=== PATIENT | male | born 1960 | race Caucasian/White ===

== ENCOUNTER 2016-12-04 09:23 | Emergency (ER) | payer BC ==
[2016-12-04 09:32] VITALS: BP 181/109
--- NOTE | 2016-12-04 13:06 | UC ---
Respiratory Complaint HPI - HPI Summary HPI Summary: The patient comes in today for: 1. Choking sensation, anxiety, dyspnea ("I have to breath really deep to get any air."): Onset: 2 months. Palliative/provocative: Nothing makes his symptoms better or worse. Quality: Choking sensation. Region: Neck Severity: 4/10 for choking and dypsnea. Time: Constant. Associated symptoms: Fevers: None. Previous disease: None. Wheezing: Today. Previous use of inhalers: He is on Previous disease: He was initially seen in early October by [facility]--dx: Sinus infection, Rx: Augmentin 875 bid. His symptoms were cough at that time, along with sinus pressure. Second visit (end october): Dx: same with Rx Albuterol. Third visit was last : Dx: "same thing." He was given a repeat of Augmentin. He was given the Advair HFA 230/21. He was given a "breathing treatment" which helped. * - History of Current Complaint Chief Complaint: UCRespiratory Stated Complaint: RESP COMPLAINT Time Seen by Provider: 12/04/16 12:28 Hx Obtained From: Patient - Allergies/Home Medications Allergies/Adverse Reactions: Allergies Allergy/AdvReac Type Severity Reaction Status Date / Time No Known Allergies Allergy Verified 12/04/16 09:32 Home Medications: Home Medications Amoxicillin/Clavulanate TAB* [Augmentin TAB 875*] 875 mg PO BID 12/04/16 [ History Confirmed 12/04/16] PMH/Surg Hx/FS Hx/Imm Hx Previously Healthy: Yes Endocrine History Of: Denies: Diabetes, Thyroid Disease, Hyperthyroidism, Hypothyroidism, Dyslipidemia Cardiovascular History Of: Denies: Cardiac Disorders, Hypertension, Pacemaker/ICD, Myocardial Infarction , Congestive Heart Failure, Atrial Fibrillation, Deep Vein Thrombosis, Bleeding Disorders Respiratory History Of: Denies: COPD, Asthma, Bronchitis, Pneumonia, Pulmonary Embolism GI/ History Of: Denies: Gastroesophageal Reflux, Ulcer, Gastrointestinal Bleed, Gall Bladder Disease, Kidney Stones, Diverticulitis, Renal Disease, Urosepsis Neurological History Of: Denies: TIA, CVA, Dementia, Seizures, Migraine Psychological History Of: Denies: Anxiety, Depression, Bipolar Disorder, Schizophrenia, Post Traumatic Stress Disorder Cancer History Of: Denies: Lung Cancer, Colorectal Cancer, Breast Cancer, Prostate Cancer, Cervical Cancer Other History Of: Negative For: HIV, Hepatitis B, Hepatitis C, Anticoagulant Therapy - Surgical History Surgical History: None Surgery Procedure, Year, and Place: appy - Family History Known Family History: Negative: Cardiac Disease, Hypertension - Social History Occupation: Employed Full-time Alcohol Use: None Substance Use Type: None Smoking Status (MU): Never Smoked Tobacco Review of Systems Constitutional: Negative Skin: Negative Eyes: Negative ENT: Negative Respiratory: Shortness Of Breath, Cough Cardiovascular: Negative Gastrointestinal: Negative Genitourinary: Negative All Other Systems Reviewed And Are Negative: Yes Physical Exam Triage Information Reviewed: Yes Appearance: Well-Appearing, No Pain Distress, Well-Nourished Vital Signs: Initial Vital Signs Temp 97.1 F 12/04/16 09:28 Pulse 75 12/04/16 09:28 Resp 28 12/04/16 09:28 BP 181/109 12/04/16 09:28 Pulse Ox 100 12/04/16 09:28 Repeat BP prior to leavin/90. Vital Signs Reviewed: Yes Eyes: Positive: Conjunctiva Clear. Negative: Discharge ENT: Positive: Hearing grossly normal. Negative: Pharyngeal erythema, Nasal congestion, Nasal drainage, TM bulging, TM dull, TM red, Tonsillar swelling, Tonsillar exudate Dental: Negative: Gross Decay/Caries @, Dental Fracture @ Neck: Positive: Supple, Nontender, No Lymphadenopathy. Negative: Nuchal Rigidity Respiratory: Positive: No respiratory distress, No accessory muscle use, Rhonchi - Few, Wheezing - few Cardiovascular: Positive: RRR, No Murmur Abdomen Description: Positive: Nontender, No Organomegaly, Soft. Negative: Distended, Guarding Musculoskeletal: Positive: Strength Intact, ROM Intact, No Edema Neurological: Positive: Alert, Muscle Tone Normal Psychological: Positive: Age Appropriate Behavior, Consolable Skin: Negative: rashes, breakdown UC Diagnostic Evaluation - Laboratory O2 Sat by Pulse Oximetry: 100 Diagnostic Studies Comment: IMPRESSION: NO ACTIVE CARDIOPULMONARY DISEASE IS NOTED. Respiratory Course/Dx - Differential Dx/Diagnosis Differential Diagnosis/HQI/PQRI: Asthma, Bronchitis, Laryngitis, Sinusitis Provider Diagnoses: Bronchospasm. Upper respiratory infection. Globus syndrome. Discharge - Discharge Plan Condition: Stable Disposition: HOME Patient Education Materials: Bronchospasm (ED) Additional Instructions: Please contact your primary care provider today for a follow-up evaluation early next week to see how well you are doing. If you continue to have problems with a choking sensation in your throat, please discuss with your primary care provider a possible ENT evaluation.
[2016-12-04] MEDS ORDERED: Albuterol/Ipratropium NEB.SOL* Albuterol 2.5 MG/Ipratropium 0.5 MG 3 ML INH ONE (13:11)
--- NOTE | 2016-12-04 14:02 | RAD ---
Indication: Cough, dyspnea. 2 views of the chest including dual energy PA views demonstrate no mediastinal shift. Tortuous descending aorta is noted. Lung reyes are clear. No prior study is available for comparison. IMPRESSION: NO ACTIVE CARDIOPULMONARY DISEASE IS NOTED.
== END 2016-12-04 14:36 | disposition home or self-care (01) ==
LOC: UCEAST 09:23
DX: J98.01 Acute bronchospasm (principal); J06.9 Acute upper respiratory infection, unspecified; F45.8 Other somatoform disorders; F41.9 Anxiety disorder, unspecified; J32.8 Other chronic sinusitis
CPT/HCPCS: 71020; 99202; A9270-GY; G0463

== ENCOUNTER 2016-12-08 09:58 | Emergency (ER) | payer BC ==
[2016-12-08] MEDS ORDERED: Aspirin Low Dose CHEW TAB* 81 MG PO ONE (13:29)
[2016-12-08] MEDS ORDERED: Aspirin EC TAB* 325 MG PO ONE (13:30)
--- NOTE | 2016-12-08 14:02 | ED ---
Progress - Progress Note Progress Note: 56 yo male fighting an upper respiratory illness for over a month on multiple antibiotics and a reported neg cxr by pt. Pt had a few episodes of feeling swelling in his throat and last night felt his heart was beating very strongly. no pain now. 1) ekg 2) trop 3) labs 4) asa Course/Dx - Diagnoses Provider Diagnoses: Chest pain
[2016-12-08 14:26] LABS: Hematocrit 46 % (42-52); Hemoglobin 15.7 g/dl (14.0-18.0); Mean Corpuscular HGB Conc 34 g/dl (31-36); Mean Corpuscular Hemoglobin 31 pg (27-31); Mean Corpuscular Volume 90 fL (80-94); Mean Platelet Volume 7 um3 (7.4-10.4); Red Blood Count 5.14 10^6/ul (4.0-5.4); Red Cell Distribution Width 15 % (10.5-15); White Blood Count 9.5 10^3/ul (3.5-10.8)
[2016-12-08 14:28] LABS: Add Diff/Slide Review? Slide Review Added; Comments Flag Yes
[2016-12-08 14:45] LABS: Albumin 4.6 g/dL (3.2-5.2); Calcium 9.4 mg/dL (8.6-10.3); EGFR African American 74.9 (>60); EGFR Non-African American 58.2 (>60); Globulin 3.2 g/dL (2-4); Magnesium 2.2 mg/dL (1.9-2.7); Potassium 3.9 mmol/L (3.5-5.0); Total Bilirubin 0.5 mg/dL (0.2-1.0); Total Protein 7.8 g/dL (6.4-8.9)
[2016-12-08 15:14] VITALS: BP 156/96
[2016-12-08] MEDS ORDERED: NS 0.9% 1000 ML* 1,000 ML IV ONE (17:26)
--- NOTE | 2016-12-08 17:31 | RAD ---
INDICATION: Chest pain COMPARISON: December 04, 2016 TECHNIQUE: An AP portable view obtained at 1720 hours is submitted. FINDINGS: Bones/Soft Tissues: There are no acute bony findings. Cardiomediastinal: The cardiomediastinal silhouette is normal. Lungs: There are no infiltrates. Pleura: There are no pleural effusions. Other: None IMPRESSION: NO ACTIVE DISEASE.
[2016-12-08] MEDS ORDERED: Iodixanol* (CONTRAST) 320 MG/ML 100 ML SDV IV ONE (17:34)
--- NOTE | 2016-12-08 18:09 | RAD ---
INDICATION: Voice change COMPARISON: Chest x-ray same date TECHNIQUE: Axial source images were acquired following the intravenous administration of 50 mL of Visipaque 320 Coronal and sagittal reconstructed images were acquired. FINDINGS: Brain and skull base: There are no CT abnormalities of the visualized brain or skull base. The mastoid air cells are well aerated. Salivary glands: The major salivary glands appear normal. Paranasal sinuses: The paranasal sinuses are clear. Nasopharynx: The nasopharynx and nasal cavity appear normal. Oropharynx: The oral, and oropharynx appear normal. Larynx: There are no laryngeal abnormalities. Thyroid: The thyroid appears normal. Lymph nodes: There is no lymphadenopathy by size criteria. Trachea/esophagus: There are no abnormalities of the trachea or visualized esophagus. The visualized lung apices are clear.. Vessels:The vessels appear normal. Bones and soft tissues:The remaining soft tissue elements of the neck are normal. There are no acute bony findings. Other: None IMPRESSION: NO MASS OR INFLAMMATORY CHANGE.
--- NOTE | 2016-12-08 19:21 | ED ---
Kali Monsalve Janilya, scribed for Sweta Louis MD on 12/08/16 at 1653 . HPI Chest Pain - HPI Summary HPI Summary: A 56 y/o male came in to [facility] presenting w/ a gradual onset of constant CP for about a few days. Pt states he had sinus infection over a month ago, for which, he was put on Augmentin for 10 days in October. 5-6 days ago, pt felt chest tightness, SOB like "throat closing up", constant palpitations, wheezes, changes in voice. Pt denies fever. On 12/04/2016, pt went to [facility] and was prescribed Prednisone. On 12/06/2016, pt visited a PCP and was given Levaquin and blood pressure medicine. No SHx smoking or drinking. No PMHx asthma. No FMHx IN, HTN, DM, DVT. FMHx stents - brother. - History of Current Complaint Chief Complaint: EDGeneral Time Seen by Provider: 12/08/16 16:36 Hx Obtained From: Patient Onset/Duration: Started Days Ago, Atraumatic, Still Present Timing: Constant, Lasting Days Initial Severity: Moderate Current Severity: Moderate Pain Intensity: 1 Chest Pain Location: Upper Sternal Chest Pain Radiates: No Character: Dyspnea at Rest, Fluttering, Pounding, Tightness Aggravating Factor(s): Nothing Alleviating Factor(s): Nothing Associated Signs and Symptoms: Positive: Chest Pain, Shortness of Breath, Palpitations. Negative: Fever - Risk Factors Pulmonary Embolism Risk Factors: Negative TAD Risk Factors: Negative - Allergy/Home Medications Allergies/Adverse Reactions: Allergies Allergy/AdvReac Type Severity Reaction Status Date / Time No Known Allergies Allergy Verified 12/04/16 09:32 PMH/Surg Hx/FS Hx/Imm Hx Endocrine/Hematology History: Denies: Hx Anticoagulant Therapy, Hx Diabetes, Hx Thyroid Disease Cardiovascular History: Denies: Hx Congestive Heart Failure, Hx Deep Vein Thrombosis, Hx Hypertension , Hx Myocardial Infarction, Hx Pacemaker/ICD Respiratory History: Denies: Hx Asthma, Hx Chronic Obstructive Pulmonary Disease (COPD), Hx Lung Cancer, Hx Pneumonia, Hx Pulmonary Embolism GI History: Denies: Hx Gall Bladder Disease, Hx Gastrointestinal Bleed, Hx Ulcer, Hx Urosepsis History: Denies: Hx Kidney Stones, Hx Renal Disease Neurological History: Denies: Hx Dementia, Hx Migraine, Hx Seizures, Hx Transient Ischemic Attacks (TIA) Psychiatric History: Denies: Hx Anxiety, Hx Depression, Hx Schizophrenia, Hx Bipolar Disorder - Surgical History Surgery Procedure, Year, and Place: appy Infectious Disease History: No Infectious Disease History: Denies: Traveled Outside the [place] in Last 30 Days - Family History Known Family History: Negative: Cardiac Disease, Hypertension, Diabetes - No IN, DVT, but stents - brother - Social History Occupation: Employed Full-time Lives: With Family Alcohol Use: None Substance Use Type: Reports: None Smoking Status (MU): Never Smoked Tobacco Review of Systems Negative: Fever ENT: Other - changes in voice Positive: Palpitations, Chest Pain - chest tightness Respiratory: Other - wheezes and changes in voice Positive: Shortness Of Breath All Other Systems Reviewed And Are Negative: Yes Physical Exam Triage Information Reviewed: Yes Vital Signs On Initial Exam: Initial Vitals Temp Pulse Resp BP Pulse Ox 97.6 F 82 18 158/96 99 12/08/16 10:17 12/08/16 10:17 12/08/16 10:17 12/08/16 10:17 12/08/16 10:17 Vital Signs Reviewed: Yes Appearance: Positive: Well-Appearing, No Pain Distress Skin: Positive: Warm, Skin Color Reflects Adequate Perfusion, Dry Eyes: Positive: EOMI, [place] ENT: Positive: Pharynx normal, TMs normal Neck: Positive: Supple, Nontender Respiratory/Lung Sounds: Positive: Clear to Auscultation, Breath Sounds Present. Negative: Rales, Rhonchi - no wheezes Cardiovascular: Positive: RRR. Negative: Murmur, Rub - no gallops Abdomen Description: Positive: Nontender, Soft. Negative: Distended, Guarding - no rebound Bowel Sounds: Positive: Present Musculoskeletal: Positive: Strength/ROM Intact. Negative: Edema Left, Edema Right Neurological: Positive: Normal, Sensory/Motor Intact, Alert, Oriented to Person Place, Time Psychiatric: Positive: Affect/Mood Appropriate Diagnostics - Vital Signs Vital Signs Temp Pulse Resp BP Pulse Ox 12/08/16 15:14 97.6 F 85 18 156/96 95 12/08/16 10:17 97.6 F 82 18 158/96 99 - Laboratory Lab Results: Lab Results 12/08/16 12/08/16 12/08/16 Range/Units 14:14 14:14 14:14 WBC 9.5 (3.5-10.8) 10^3/ul RBC 5.14 (4.0-5.4) 10^6/ul Hgb 15.7 (14.0-18.0) g/dl Hct 46 (42-52) % MCV 90 (80-94) fL MCH 31 (27-31) pg MCHC 34 (31-36) g/dl RDW 15 (10.5-15) % Plt Count 297 (150-450) 10^3/ul MPV 7 L (7.4-10.4) um3 Neut % (Auto) 56.4 (38-83) % Lymph % (Auto) 36.9 (25-47) % [place] % (Auto) 4.9 (1-9) % Eos % (Auto) 0.9 (0-6) % Baso % (Auto) 0.9 (0-2) % Absolute Neuts (auto) 5.4 (1.5-7.7) 10^3/ul Absolute Lymphs (auto) 3.5 (1.0-4.8) 10^3/ul Absolute Monos (auto) 0.5 (0-0.8) 10^3/ul Absolute Eos (auto) 0.1 (0-0.6) 10^3/ul Absolute Basos (auto) 0.1 (0-0.2) 10^3/ul Absolute Nucleated RBC 0 10^3/ul Nucleated RBC % 0 Sodium 137 (133-145) mmol/L Potassium 3.9 (3.5-5.0) mmol/L Chloride 100 L (101-111) mmol/L Carbon Dioxide 30 (22-32) mmol/L Anion Gap 7 (2-11) mmol/L BUN 19 (6-24) mg/dL Creatinine 1.27 H (0.67-1.17) mg/dL Est GFR ( Amer) 74.9 (>60) Est GFR (Non-Af Amer) 58.2 (>60) BUN/Creatinine Ratio 15.0 (8-20) Glucose 93 (70-100) mg/dL Lactic Acid 1.8 (0.5-2.0) mmol/L Calcium 9.4 (8.6-10.3) mg/dL Magnesium 2.2 (1.9-2.7) mg/dL Total Bilirubin 0.50 (0.2-1.0) mg/dL AST 29 (13-39) U/L ALT 45 (7-52) U/L Alkaline Phosphatase 46 (34-104) U/L Troponin I 0.00 (<0.04) ng/mL Total Protein 7.8 (6.4-8.9) g/dL Albumin 4.6 (3.2-5.2) g/dL Globulin 3.2 (2-4) g/dL Albumin/Globulin Ratio 1.4 (1-3) Result Diagrams: 12/08/16 14:14 12/08/16 14:14 Lab Statement: Any lab studies that have been ordered have been reviewed, and results considered in the medical decision making process. - Radiology CXR Xray Interpretation: No Acute Changes - IMPRESSION: No active disease Radiology Interpretation Completed By: Radiologist - CT Neck CT Interpretation: No Acute Changes - IMPRESSION: No mass or inflammatory change CT Interpretation Completed By: Radiologist - EKG 1026 Cardiac Rate: NL - 73 bpm EKG Rhythm: Sinus Rhythm ST Segment: Non-Specific Chest Pain Course/Dx - Course Course Of Treatment: 56 yo male with long course of sinus symptoms with 2 courses of abx and steroids with hoarse voice and recent feeling of fullness in his throat with palpitations/chest tightness. ekg and trop negative here ( greater than 6 hour trop) ct neck neg, ddimer neg. there are many diagnoses in the differential including vocal cord abnormality, sleep apnea, thyroid issues and most importantly angina. Pt and his are aware that despite a stress test 4-5 years ago and no family history that he needs one soon. - Diagnoses Provider Diagnoses: Chest pain, Sinusitis Discharge - Discharge Plan Condition: Stable Disposition: HOME Patient Education Materials: Chest Pain (ED), Sinusitis (ED) Referrals: Logan Horta MD [Medical Doctor] - Additional Instructions: Follow up with your primary care provider if symptoms persist or worsen. The documentation as recorded by the Kali perdomo Janilya accurately reflects the service I personally performed and the decisions made by me, Sweta Louis MD.
[2016-12-08 20:24] LABS: TSH (Thyroid Stimulating Horm) 15.63 mcIU/mL (0.34-5.60)
== END 2016-12-08 19:11 | disposition home or self-care (01) ==
LOC: ED 09:58
DX: R07.9 Chest pain, unspecified (principal); J32.9 Chronic sinusitis, unspecified; R00.2 Palpitations; R06.02 Shortness of breath
CPT/HCPCS: 36415; 70491; 71010; 80053; 83605; 83735; 84443; 84484; 85025; 85379; 93005; 99282; A9270-GY; Q9967

== ENCOUNTER 2016-12-12 07:10 | Emergency (ER) | payer BC, OTHER ==
--- NOTE | 2016-12-12 10:48 | RAD ---
HISTORY: Hoarseness, difficulty swallowing COMPARISONS: CT dated 12/08/2016 TECHNIQUE: A double contrast fluoroscopic study was performed of the esophagus. Effervescent granules were administered, followed by thin and thick liquid barium under fluoroscopic observation. Multiple digital spot images were obtained. Total fluoroscopy time is 0.8 minutes. FINDINGS: ESOPHAGUS: There is mild mucosal irregularity of the distal esophagus. A small Zenker's diverticulum is noted. There are occasional tertiary nonpropulsive contractions. STOMACH: The visualized stomach is unremarkable. IMPRESSION: 1. SMALL ZENKER'S DIVERTICULUM. 2. MILD MUCOSAL IRREGULARITY OF THE DISTAL ESOPHAGUS. CONSIDER CORRELATION WITH DIRECT VISUALIZATION. 3. MILD PRESBYESOPHAGUS. CPT II Codes: 6045F
--- NOTE | 2016-12-12 13:25 | ED ---
Amber Monsalve SooYoung, scribed for Demetrius Hutchison MD on 12/12/16 at 0821 . Throat Pain/Nasal Congestion - HPI Summary HPI Summary: A 56 y/o M presents to ED with c/o a worsening pressure in throat onset a few months ago. He states the "choking" feeling was intermittent but is becoming more constant. He describes it as "tightness, closing." He is able to swallow food/drink OK, eating doesn't alleviate or aggravate the sensation. Associated sx: hoarseness, SOB, anxiety, diaphoretic, gagging this AM. He notes having vomited months ago when he had the sx. Tripp: fever, chills, CP. According to , pt's weight has been fluctuating. Pt saw his PCP yesterday. He is scheduled to see an ENT in three days. NKA. - History of Current Complaint Chief Complaint: EDThroatPain Hx Obtained From: Patient Onset/Duration: Lasting Weeks - MONTHS, Still Present Associated Signs And Symptoms: Positive: Hoarseness. Negative: Dysphagia - Allergies/Home Medications Allergies/Adverse Reactions: Allergies Allergy/AdvReac Type Severity Reaction Status Date / Time No Known Allergies Allergy Verified 12/12/16 07:21 Home Medications: Home Medications Albuterol Sulfate [Proair Respiclick] 2 puff INH .Q4-6H PRN 12/12/16 [History Confirmed 12/12/16] Albuterol/Ipratropium RESP(NF) [Combivent Respimat(NF)] 1 puff INH QID 12/12/16 [History Confirmed 12/12/16] Fluticasone NASAL SPRAY 50MCG* [Flonase NASAL SPRAY 50MCG*] 2 spray BOTH NARES BEDTIME 12/12/16 [History Confirmed 12/12/16] Levofloxacin TAB* [Levaquin TAB*] 500 mg PO DAILY 12/12/16 [History Confirmed ] amLODIPine TAB* [Norvasc TAB*] 5 mg PO DAILY 12/12/16 [History Confirmed ] guaiFENesin/CODIEN 100MG-10MG* [Robitussin AC 100Mg-10Mg*] 5 - 10 ml PO BEDTIME PRN 12/12/16 [History Confirmed 12/12/16] PMH/Surg Hx/FS Hx/Imm Hx Previously Healthy: Yes Endocrine/Hematology History: Denies: Hx Anticoagulant Therapy, Hx Diabetes, Hx Thyroid Disease Cardiovascular History: Reports: Hx Hypertension Denies: Hx Congestive Heart Failure, Hx Deep Vein Thrombosis, Hx Myocardial Infarction, Hx Pacemaker/ICD Respiratory History: Denies: Hx Asthma, Hx Chronic Obstructive Pulmonary Disease (COPD), Hx Lung Cancer, Hx Pneumonia, Hx Pulmonary Embolism GI History: Denies: Hx Gall Bladder Disease, Hx Gastrointestinal Bleed, Hx Ulcer, Hx Urosepsis History: Denies: Hx Kidney Stones, Hx Renal Disease Neurological History: Denies: Hx Dementia, Hx Migraine, Hx Seizures, Hx Transient Ischemic Attacks (TIA) Psychiatric History: Denies: Hx Anxiety, Hx Depression, Hx Schizophrenia, Hx Bipolar Disorder - Surgical History Surgery Procedure, Year, and Place: appy Infectious Disease History: No Infectious Disease History: Denies: Traveled Outside the [place] in Last 30 Days - Family History Known Family History: Negative: Cardiac Disease, Hypertension, Diabetes Family History: No [place], DVT, but stents - mother and brother; ALZ - father - Social History Occupation: Employed Full-time Lives: With Family Alcohol Use: None Hx Substance Use: No Substance Use Type: Reports: None Hx Tobacco Use: Yes Smoking Status (MU): Never Smoked Tobacco Review of Systems Positive: Skin Diaphoresis. Negative: Fever, Chills Positive: Other - pos: hoarseness, neg: dysphagia Negative: Chest Pain Positive: Shortness Of Breath Positive: Other - gagging Positive: Anxious All Other Systems Reviewed And Are Negative: Yes Physical Exam - Summary Physical Exam Summary: The patient is in no acute distress and in no acute pain. OBESE. The skin is warm and dry and skin color reflects adequate perfusion. HEENT: The head is normocephalic and atraumatic. The pupils are equal and reactive. The conjunctivae are clear and without drainage. Nares are patent and without drainage. Throat is without erythema and exudate. The external ears are intact. The ear canals are patent and without drainage. The tympanic membranes are intact. VOCAL HOARSENESS. NO EXOPHTHALMUS. ORAL MUCOSA DRY. Neck is supple with full range of motion and non-tender. There are no carotid bruits. There is no neck vein distension. THYROID ENLARGED, NO NODULES APPRECIATED. Respiratory: Chest is non-tender. Lungs are clear to auscultation and breath sounds are symmetrical and equal. Cardiovascular: Hear is regular rate and rhythm. There is no murmur or rub auscultated. There is no peripheral edema and pulses are symmetrical and equal. Abdomen: The abdomen is soft and non-tender. There are normal bowel sounds heard in all four quadrants and there is no organomegaly palpated. VENTRAL HERNIA, EASILY REDUCIBLE. Musculoskeletal: There is no back pain noted. Extremities are non-tender with full range of motion. There is good capillary refill. There is no peripheral edema or calf tenderness elicited. Neurological: Patient is alert and oriented to person, place and time. The patient has symmetrical motor strength in all four extremities. Cranial nerves are grossly intact. Deep tendon reflexes are symmetrical and equal in all four extremities. Psychiatric: The patient has an appropriate affect and does not exhibit any anxiety or depression. Triage Information Reviewed: Yes Vital Signs On Initial Exam: Initial Vitals Temp Pulse Resp BP Pulse Ox 97.4 F 84 16 147/92 97 12/12/16 07:21 12/12/16 07:21 12/12/16 07:21 12/12/16 07:21 12/12/16 07:21 Vital Signs Reviewed: Yes Diagnostics - Vital Signs Vital Signs Temp Pulse Resp BP Pulse Ox 12/12/16 07:21 97.4 F 84 16 147/92 97 - Laboratory Lab Statement: Any lab studies that have been ordered have been reviewed, and results considered in the medical decision making process. - Radiology ESOPHAGEAL XR Xray Interpretation: Positive (See Comments) - IMPRESSION: 1. SMALL ZENKER'S DIVERTICULUM. 2. MILD MUCOSAL IRREGULARITY OF THE DISTAL ESOPHAGUS. CONSIDER CORRELATION WITH DIRECT VISUALIZATION. 3. MILD PRESBYESOPHAGUS. Radiology Interpretation Completed By: Radiologist Re-Evaluation - Re-Evaluation 1 Re-Evaluation Time: 09:41 Change: Unchanged Comment: Discussing results with pt. Pt wants to have esophagram in ED and have ENT see him. 2 Re-Evaluation Time: 11:36 Change: Unchanged Comment: Discussing esophagus XR results with pt. Awaiting eval with ENT. 3 Re-Evaluation Time: 12:47 Change: Unchanged Comment: Discussing Dr. Granado's evaluation, d/c plans. Pt voiced understanding. EENT Course/Dx - Differential Diagnoses Differential Diagnoses: Other - esophagitis, zenker diverticulum, tumor, thyroid goiter, hypothyroidism, upper airway obstruction, gerd - Diagnoses Provider Diagnoses: Zenker diverticulum, Hypothyroidism, GERD (gastroesophageal reflux disease) - Provider Notifications Discussed Care of Patient with: 0840: CALL OUT TO DR. HORTA. OFFICE SAYS DR. HORTA IS UNAVAILABLE ON FRIDAYS. 917: SPOKE TO DR. SLADAÑA, RADIOLOGY, RECOMMENDS ESOPHAGRAM. 934: SPOKE TO DR. CABELLO, ENT, WILL SEE PT IN ED. 944: SPOKE TO DR. CABELLO, CONFIRMED, SEE PT IN ED. Instructed by Provider To: MD Will See In ED Discharge - Discharge Plan Condition: Stable Disposition: HOME Prescriptions: Famotidine TAB* [Pepcid TAB*] 40 mg PO DAILY #30 tab Levothyroxine TAB* [Synthroid TAB*] 25 mcg PO DAILY #30 tab Omeprazole CAP* [Prilosec CAP* 20 MG] 40 mg PO DAILY #60 cap.dr Patient Education Materials: Levothyroxine (By mouth), Omeprazole (By mouth), Hypothyroidism (ED), Gastroesophageal Reflux Disease (ED) Referrals: Logan Horta MD [Primary Care Provider] - 1 Week Juwan Granado MD [Medical Doctor] - 2 Weeks Additional Instructions: Follow up with Dr. Horta within a week. Follow up with Dr. Granado within two weeks. As we discussed: Avoid eating 2 hours prior to going to bed. Elevate the head your bed. Take your medication as prescribed. Pepcid 40 mg daily in the evening. Prilosec 40 mg daily in the morning. Synthroid 25 micrograms daily. If you experience new or worsening symptoms, please come back to the Emergency Department. The documentation as recorded by the Amber perdomo SooYoung accurately reflects the service I personally performed and the decisions made by me, Demetrius Hutchison MD.
[2016-12-12 14:53] VITALS: BP 134/82
--- NOTE | 2016-12-12 21:42 | CONS ---
CONSULTATION REPORT: DATE OF CONSULT: 12/12/16 Seen in the emergency room. BRIEF HISTORY: This 56-year-old gentleman presented to the ER with several choking episodes and feeling of having difficulty swallowing. He was seen in the emergency room x2. At the workup in the emergency room, he had a barium esophagram and thyroid studies. He was found to be severely hypothyroid and was found to have a Zenker's diverticulum. However, he continued to have some symptoms of hoarseness. He also has noted about 25-pound weight loss. His noted that he was having difficulty at nighttime with symptoms and signs which suggested sleep apnea. He does have some intermittent history of reflux. He has not had any true aspiration events. PHYSICAL EXAM: On examination, the ear canals are clear. Facial exam normal. Nasal cavity, oral cavity, oropharynx unremarkable. Neck examination showed no significant lymphadenopathy or thyromegaly. Flexible endoscopy was then carried out. After topical anesthesia the right naris with a flexible scope, the flexible scope was introduced to the larynx. There was extensive edema of the larynx and erythema but no evidence of any severe mucosal abnormality. There was good mobility. The scope was removed. DIAGNOSTIC STUDIES/LAB DATA: X-rays were reviewed. There was small Zenker's diverticulum. This was classic on the left side. CLINICAL IMPRESSION: 1. Patient with symptoms of dysphagia, clearly has many different etiologies for this. One of my main things is of course, he may be having reflux with his sleep symptoms with weight gain and hypothyroidism. I think he is already started on a replacement thyroid medication. 2. He may have dysphagia secondary to Zenker's, but I think this is probably a small Zenker's and unlikely to be causing many of his symptoms. 3. He may have some gastroesophageal mucositis of the esophagus and I think we should start him on some omeprazole 40 mg and Pepcid 40 mg at bedtime for at least 2 to 3 months. I will definitely see him again in the office, he should have his thyroid studies normalized. I did discuss with him elevation of the head of the bed so that he may have less reflux type symptoms and I think a workup for sleep apnea may be also in the future indicated. In the meantime if he continues to be symptomatic, he is to call the office sooner. [id number]/[facility] #: [id number] [facility]OSPITALSulema
== END 2016-12-12 14:52 | disposition home or self-care (01) ==
LOC: ED 07:10
DX: R09.89 Other specified symptoms and signs involving the circulatory and respiratory systems (principal); R13.10 Dysphagia, unspecified; K22.5 Diverticulum of esophagus, acquired; R06.02 Shortness of breath; F41.9 Anxiety disorder, unspecified
CPT/HCPCS: 74220; 99282

== ENCOUNTER 2018-11-01 13:31 | Day surgery (SDC) | payer BC, OTHER ==
[~2018-11-01 13:31] MED LIST: Acetaminophen TAB* 325 MG PO ONE; Buffered Lidocaine 0.9% SYRIN* 5 ML/SYR SYRINGE INTRADERM ONE; Bupivacaine 0.25% W/EPI* 10 ML SDV ONE; Gabapentin CAP(*) 300 MG PO ONE; Lactated Ringers 1000 ML Bag* 1,000 ML IV SCH; Lidocaine 1% INJ* 10 MG/ML 30 ML SDV ONE; Midazolam* 1 MG/ML 2 ML VIAL (2 MG) ONE; fentaNYL* 50 MCG/ML 2 ML VIAL (100 MCG VIAL) ONE
[2018-11-01] MEDS ORDERED: ceFAZolin 2 GM PREMIX in ORs 2 GM/50 ML BAG IVPB ONE (13:43)
[2018-11-01] MEDS ORDERED: Acetaminophen TAB* 325 MG ONE (13:43)
[2018-11-01] MEDS ORDERED: Gabapentin CAP(*) 300 MG ONE (13:43)
[2018-11-01] MEDS ORDERED: Famotidine IV* 10 MG/ML 2 ML (20 mg) ONE (14:31)
[2018-11-01] MEDS ORDERED: Ondansetron INJ* 2 MG/ML VIAL ONE ×2 (14:31→17:09)
[2018-11-01] MEDS ORDERED: Propofol* 10 MG/ML 20 ML BTL ONE (14:31)
[2018-11-01] MEDS ORDERED: Ketorolac INJ* 30 MG/ML 1 ML VIAL ONE (14:31)
[2018-11-01] MEDS ORDERED: Dexamethasone IV* 4 MG/ML 1 ML (4 MG) ONE ×2 (14:31→15:12)
[2018-11-01] MEDS ORDERED: Rocuronium* 10 MG/ML VIAL ONE (14:33)
[2018-11-01] MEDS ORDERED: HYDROcodone/ACETAMIN 5-325 MG* 1 TAB PO PRN ×2 (15:30)
[2018-11-01] MEDS ORDERED: Ondansetron INJ* 2 MG/ML VIAL IV PRN (15:30)
[2018-11-01] MEDS ORDERED: PROCHLORPERAZINE INJ 5 MG/ML 2 ML VIAL IV PRN (15:30)
[2018-11-01] MEDS ORDERED: fentaNYL* 50 MCG/ML 2 ML VIAL (100 MCG VIAL) IV PRN (15:30)
[2018-11-01] MEDS ORDERED: DiMENhydriNATE IV* 50 MG/ML VIAL IV PUSH PRN (15:30)
[2018-11-01] MEDS ORDERED: diPHENhydraMINE IV* 50 MG/ML 1 ml VIAL (BENADRYL) IV PRN (15:30)
[2018-11-01] MEDS ORDERED: Naloxone* 0.4 MG/ML 1 ML VIAL IV PRN (15:30)
[2018-11-01] MEDS ORDERED: Acetaminophen TAB* 325 MG PO PRN (15:30)
[2018-11-01] MEDS ORDERED: fentaNYL* 50 MCG/ML 2 ML VIAL (100 MCG VIAL) ONE (15:41)
[2018-11-01] MEDS ORDERED: Neostigmine Methylsulfate* 2 MG/2 ML SYRINGE ONE (16:54)
--- NOTE | 2018-11-01 16:54 | BRIEFOPN ---
Brief Operative Note - Surgery Procedures: OPERATIVE REPORT PRE-OP: Bilateral inguinal hernias, umbilical hernia POST-OP: Bilateral direct inguinal hernias, small umbilical hernia PROCEDURE: Laparoscopic repair with mesh of bilateral direct inguinal hernias, open primary repair of umbilical hernia SURGEON: MD Lita ANESTHESIA:Local with General, Dr. Mejia ASST:Marcello Cox MD IVF: One liter of crystalloid EBL:min SPECIMEN:none DRAIN: none WOUND CLASS:One COMPLICATIONS: none TO PACU
[2018-11-01] MEDS ORDERED: DiMENhydriNATE IV* 50 MG/ML VIAL ONE (17:09)
[2018-11-01 19:01] VITALS: BP 132/80
--- NOTE | 2018-11-02 02:14 | OP ---
CC: Dr. Logan Horta.* DATE OF OPERATION: 11/01/18 - [facility] DATE OF : 56 SURGEON: Swapnil London MD AUDIO NARRATOR: John Cox MD ANESTHESIA: General with local. ANESTHESIOLOGIST: Dr. Mejia. PRE-OP DIAGNOSES: 1. Bilateral inguinal hernias. 2. Umbilical hernia. POST-OP DIAGNOSES: 1. Bilateral direct inguinal hernias. 2. Umbilical hernia. OPERATIVE PROCEDURE: Totally extraperitoneal laparoscopic repair of bilateral direct inguinal hernias with mesh and a primary repair of a umbilical hernia. ESTIMATED BLOOD LOSS: Minimal. SPECIMENS: None. DRAINS: None. WOUND CLASSIFICATION: I. DESCRIPTION OF PROCEDURE: Written informed consent was obtained, the umbilicus and both groins were marked with indelible ink and preoperative antibiotics were administered. The patient was taken to the operating room and placed in the supine position. Sequential compression device and warming blanket were applied. General anesthesia was administered and a Simms catheter was inserted. The abdomen and both groins were prepped and draped in usual sterile fashion. Time-out verification was complected. Initially, a small transverse incision was made below the umbilicus at the midline and the rectus sheath anteriorly on the left was divided transversally and the underlying muscles was retracted laterally to expose the posterior sheath. Using blunt dissection, the space was developed with a Spacemaker balloon, which was passed out of the pubic tubercle in preparation for developing the extraperitoneal space. The balloon was then inflated under direct vision of the camera with good result and the balloon was then deflated and removed. A 12-mm blunt port was inserted in the extraperitoneal space and this was inflated to 12 mmHg and the patient was placed in Trendelenburg position. Two 5-mm ports were placed in the midline below our initial port site. Dissection commenced at the midline, we were able to identify the pubic tubercle and the Spencer's ligament, both left and right sides. Attention was turned to the right side where we identified the epigastric vessels as they entered the anterior abdominal wall and also developed a space more laterally including the anterior abdominal wall. There were some adhesions to the anterior abdominal wall more laterally, most likely from a previous appendectomy and these were taken down sharply, developing the space laterally. Once the landmarks had been identified, we noted the peritoneum laterally and followed this medially. There did not appear to be an indirect hernia and the cord structures and vas deferens were identified and protected from injury and we were able to reduce the peritoneum posteriorly and followed this overlying the great vessels. There appeared to be a fat-containing direct space hernia and this was reduced and this of moderate size, but done without difficulty. Likewise, we addressed the left side in a similar fashion. We identified the epigastric vessels and then developed a space laterally to the anterior abdominal wall. We identified the peritoneum from lateral to medially and there appeared to be no evidence of indirect hernia in the internal ring and cord structures and vas deferens were protected from injury. Once again, there appeared to be a rather large fat-containing direct space hernia, which was reduced into the retroperitoneum without difficulty. Once these dissections on both sides were complete, a 10 cm x 15 cm Covidien ProGrip self-gripping mesh was rolled up and put into position to cover the pubic tubercle, the left Spencer's ligament as well as the direct and indirect spaces more laterally well up onto the anterior abdominal wall to assure coverage of both direct hernia as well as the internal ring. Likewise, another 10 cm x 15 cm ProGrip mesh was placed to cover the direct space hernia as well as the indirect space with generous coverage of the anterior abdominal wall on the left and we made sure that there was no evidence of peritoneum extending down beneath the mesh, mainly posteriorly. Hemostasis was then assured. The extraperitoneum was desufflated under direct vision holding the mesh in place with instruments as we watched the peritoneum come up over the mesh in the usual fashion. Two lower 5-mm ports were then closed with 4-0 Vicryl suture. Attention was then turned to the umbilical hernia. The incision was extended slightly to the right underneath the umbilicus and the overlying umbilical skin was excised off of small fat-containing umbilical hernia. The fascial defect was no more than 1 cm in size and this was reduced and I developed the fascia and some of the retroperitoneum with some sharp dissection. The small hernia was then closed with 2 separate 0 Ethibond sutures. Hemostasis was assured. The wound was then closed with 3-0 and 4-0 Vicryl sutures. Steri- Strips were applied to all 3 incisions. The patient tolerated the procedure well, was taken to the recovery room in stable condition. [id number]/[facility] #: [id number] [facility]ulema
== END 2018-11-01 19:05 | disposition home or self-care (01) ==
LOC: OR 13:31
PROVIDERS: ATTEND Surgery
DX: K40.20 Bilateral inguinal hernia, without obstruction or gangrene, not specified as recurrent (principal); K42.9 Umbilical hernia without obstruction or gangrene; E03.9 Hypothyroidism, unspecified; F41.9 Anxiety disorder, unspecified
CPT/HCPCS: A9270-GY; J0690; J1100; J1240; J1885; J2250; J2405; J2704; J3010